=== PATIENT | male | born 1955 | race African-American/Black ===

== ENCOUNTER 2016-04-26 10:48 | Emergency (ER) | payer MEDICAID, MEDICARE, OTHER ==
[~2016-04-26] VITALS: Ht 190.5 cm; Wt 90.0 kg
[2016-04-26 10:51] VITALS: Ht 190.5 cm; Wt 90.0 kg
== END 2016-04-26 12:48 | disposition left against medical advice (07) ==
LOC: FTE 10:48
DX: Z53.21 Procedure and treatment not carried out due to patient leaving prior to being seen by health care provider (principal)